=== PATIENT | male | born 1990 | race Caucasian/White ===

== ENCOUNTER 2017-03-07 22:02 | Emergency (ER) | payer OTHER ==
[2017-03-07 22:20] VITALS: BP 139/91
== END 2017-03-08 | disposition home or self-care (01) ==
LOC: ED 22:02
DX: S93.401A Sprain of unspecified ligament of right ankle, initial encounter (principal); W19.XXXA Unspecified fall, initial encounter; Y93.89 Activity, other specified; Y92.89 Other specified places as the place of occurrence of the external cause; Y99.8 Other external cause status

== ENCOUNTER 2018-11-21 17:50 | Emergency (ER) | payer BC ==
[~2018-11-21] VITALS: Ht 182.9 cm; Wt 143.8 kg
[2018-11-21 18:53] VITALS: BP 168/88
== END 2018-11-21 18:53 | disposition home or self-care (01) ==
LOC: ED 17:50
DX: M25.511 Pain in right shoulder (principal)
CPT/HCPCS: J1885

== ENCOUNTER 2020-01-06 14:35 | Emergency (ER) | payer BC ==
[~2020-01-06] VITALS: Ht 182.9 cm; Wt 145.6 kg
[2020-01-06 14:40] VITALS: Ht 182.9 cm; Wt 145.6 kg
[2020-01-06 15:28] LABS: BASOPHIL % 0.1 % (0-2); PLATELET COUNT 189 x10^3mcL (130-400); RED CELL DISTRIBUTION WIDTH 14.4 % (11.5-14.5)
[2020-01-06 16:12] LABS: CALCIUM 9.2 mg/dL (8.5-10.1); CARBON DIOXIDE 31.2 mmol/L (21-32); CHLORIDE SERUM 103 mmol/L (98-107); CREATININE SERUM 0.8 mg/dL (0.7-1.3); GFR1 > 60 mL/min; GLUCOSE SERUM 101 mg/dL (74-106); POTASSIUM SERUM 4.7 mmol/L (3.5-5.1); SODIUM SERUM 142 mmol/L (136-145)
[2020-01-06 16:22] LABS: ALBUMIN 3.8 g/dL (3.4-5.0); ALKALINE PHOSPHATASE 77 U/L (46-116); ALT/SGPT 34 U/L (16-63); AST/SGOT 15 U/L (15-37); BILIRUBIN TOTAL 0.89 mg/dL (0.20-1.00); TOTAL PROTEIN, SERUM 8.2 g/dL (6.4-8.2)
[2020-01-06 16:38] VITALS: BP 128/85
== END 2020-01-06 16:38 | disposition home or self-care (01) ==
LOC: ED 14:35
PROVIDERS: Emergency Medicine
DX: R07.89 Other chest pain (principal)
CPT/HCPCS: 36415; 83880; Q0092

== ENCOUNTER 2020-04-13 18:28 | Emergency (ER) | payer BC ==
[~2020-04-13] VITALS: Ht 177.8 cm; Wt 76.2 kg
[2020-04-13 18:44] VITALS: Ht 177.8 cm; Wt 76.2 kg
[2020-04-13 20:55] VITALS: BP 130/74
== END 2020-04-13 20:55 | disposition home or self-care (01) ==
LOC: ED 18:28
DX: R07.89 Other chest pain (principal); R00.2 Palpitations; R06.02 Shortness of breath; R11.0 Nausea; E66.9 Obesity, unspecified

== ENCOUNTER 2020-08-06 06:25 | Emergency (ER) | payer BC ==
[2020-08-06 06:49] VITALS: Ht 182.9 cm
[2020-08-06 07:43] LABS: CALCIUM 8.2 mg/dL (8.5-10.1); CARBON DIOXIDE 27.1 mmol/L (21-32); CHLORIDE SERUM 104 mmol/L (98-107); CREATININE SERUM 0.8 mg/dL (0.7-1.3); GFR1 > 60 mL/min; GLUCOSE SERUM 113 mg/dL (74-106); POTASSIUM SERUM 3.7 mmol/L (3.5-5.1); SODIUM SERUM 139 mmol/L (136-145)
[2020-08-06 07:47] LABS: ALBUMIN 3.6 g/dL (3.4-5.0); ALKALINE PHOSPHATASE 74 U/L (46-116); ALT/SGPT 44 U/L (16-63); AST/SGOT 22 U/L (15-37); BILIRUBIN TOTAL 0.49 mg/dL (0.20-1.00); TOTAL PROTEIN, SERUM 7.3 g/dL (6.4-8.2)
[2020-08-06 07:48] LABS: BASOPHIL % 0.5 % (0-2); PLATELET COUNT 164 x10^3mcL (130-400); RED CELL DISTRIBUTION WIDTH 14.5 % (11.5-14.5)
[2020-08-06 08:25] VITALS: BP 137/89
== END 2020-08-06 08:25 | disposition home or self-care (01) ==
LOC: ED 06:25
PROVIDERS: Emergency Medicine
DX: R73.9 Hyperglycemia, unspecified (principal); R53.1 Weakness
CPT/HCPCS: 82962